=== PATIENT | male | born 1975 | race Caucasian/White ===

== ENCOUNTER → 2022-06-12 | Outpatient (CLI) | payer OTHER, SELFPAY ==
--- NOTE | 2022-06-12 09:00 | ASPOS_PTH ---
PATIENT: RASHAUN CISNEROS LOC: [facility] U#:[id number] AGE/SX: 47/M ROOM: RE06/12/[address]: Dr. Shaquille Arzola MD : 1975 BED: DIS: 06/12/2022 SPEC #: [id number] RECD: 06/12/22 10:02 STATUS: BRAXTON PABLO #: [id number] PADMINI: 06/12/22 09:[address]: Shaquille Arzola DEPT: CYTOLOGY RECD BY: Elyssa Darden ENTERED: 06/12/22 10:03 SP TYPE: ASP HERE OTHR DR: Dr. Pankaj Argueta MD Tissues: Neck, NOS Procedures: Surgery Specimen Level IV Cytology Other Fine Needle Asp on Site HEADER OPERATION: Fine needle aspiration left neck mass PRE-OP DIAGNOSIS: Left neck mass TISSUE SUBMITTED: Left neck mass DIAGNOSIS CYTOLOGY Fine needle aspiration, left neck mass (smears and cell block): Consistent with benign epithelial cyst and contents. AM:elissa 06/13/2022 COMMENT The specimen is evaluated at the time of FNA by Dr. Santo. Immediate Evaluation = Consistent with benign epithelial cyst with polarizable debris. CYTOLOGY STUDY Slides are reviewed. CYTOLOGY GROSS Received is 0.2 ml of cloudy yellow, foul smelling material labeled with the patient's name, and designated left neck mass. Four imprints and two paps are made from the submitted fluid and the rest is added to [employer]to[employer] for cell block preparation. Submitted for cytology study. / AM:elissa 06/12/2022 TC:5 CPT: 24854, 50267, 70270, 63837
== END | disposition home or self-care (01) ==
LOC: LAB 08:47
PROVIDERS: PCP Family Medicine; Referring Provider Otolaryngology Otolaryngology/Facial Plastic Surgery; Visit Provider Otolaryngology Otolaryngology/Facial Plastic Surgery
DX: R22.1 Localized swelling, mass and lump, neck (principal)
CPT/HCPCS: 10021; 88161; 88305